=== PATIENT | male | born 1975 | race Caucasian/White ===

== ENCOUNTER → 2019-04-25 | Outpatient (CLI) | payer BC | LOC: COL.VAS 12:30 | DX: I08.0 Rheumatic disorders of both mitral and aortic valves (principal) ==

== ENCOUNTER → 2019-05-23 | Outpatient (CLI) | payer BC ==
[~2019-05-23] MED LIST: ADDERALL XR30 MG PO; AXIRON30 MG/1.5; COZAAR 25MG25 MG/TAB PO; OMEGA-31 SGL PO; RITALIN10 MG PO
== END ==
LOC: COL.RAD 10:53
DX: I77.810 Thoracic aortic ectasia (principal); I51.7 Cardiomegaly
CPT/HCPCS: Q9967

== ENCOUNTER 2019-05-24 07:36 | Day surgery (SDC) | payer BC ==
[~2019-05-24] VITALS: Ht 22.9 cm; Wt 95.4 kg
[2019-05-24] VITALS (11 sets, daily range): BP systolic 117–131; BP diastolic 66–79; PULSE 77–109; TEMP 98
[2019-05-24 08:06] LABS: HEMATOCRIT 51.9 % (42.0-52.0); HEMOGLOBIN 17.6 g/dl (13.5-18.0); MEAN CELL VOLUME 87 fl (80.0-100.0); MEAN CORPUSCULAR HEMOGLOBIN 30 pg (27.0-31.0); MEAN CORPUSCULAR HGB CONC 34 g/dl (33.0-37.0); PLATELET COUNT 231 K/mm3 (130-400); RED BLOOD COUNT 5.95 M/mm3 (4.20-5.60); REDCELL DISTRIBUTION WIDTH-CV 13.1 % (11.5-14.5)
[2019-05-24] MEDS ORDERED: ADDERALL XR30 MG PO (08:11)
[2019-05-24] MEDS ORDERED: OMEGA-31 SGL PO (08:12)
[2019-05-24] MEDS ORDERED: RITALIN10 MG PO (08:12)
[2019-05-24] MEDS ORDERED: AXIRON30 MG/1.5 (08:14)
[2019-05-24 08:18] LABS: CALCIUM 9.5 mg/dL (8.4-10.2); CREATININE, serum 1.21 (0.66-1.25); POTASSIUM 4.5 mmol/L (3.4-5.0)
[2019-05-24 08:21] LABS: INR 0.9 (0.8-3.0)
--- NOTE | 2019-05-24 10:02 | NUR ---
SEE [facility] FOR MEDICATION ADMINISTRATION TIMES AND INTRA/POST SEDATION ASSESSMENT/RASS SCORES
[2019-05-24] MEDS ORDERED: COZAAR 25MG25 MG/TAB PO (10:54)
--- NOTE | 2019-05-24 11:01 | NUR ---
GAG REFLUX INTACT. REPORT TAKEN FROM VIVIAN DEAL IN [facility].
--- NOTE | 2019-05-24 14:00 | NUR ---
5ml of air was released at 1320. Pt did have bleeding, 5ml of air was put back into the TR band and pt was instructed wait an additional 30 minutes. Pt was aware. Discharge instructions were reviewed with pt/spouse. Pt/spouse voice understanding. Pt tolerated intake with no N/V. Pt up and ambulating in and around the unit at this time with no complications. Pt voided with no complications. 5ml of air was released again after 30 minutes, no bleeding, remaining air, 6ml, was released from TR Band. 2x2 gauze and coban was applied to the pts right wrist. IV was removed with catheter tip intact, no phlebitis or infiltration. Pt was discharged via w/c to the care of spouse in private vehicle with discharge instructions in hand.
== END 2019-05-24 14:15 | disposition home or self-care (01) ==
LOC: COL.CAR 07:36
PROVIDERS: Internal Medicine Cardiovascular Disease
DX: I08.3 Combined rheumatic disorders of mitral, aortic and tricuspid valves (principal); F90.9 Attention-deficit hyperactivity disorder, unspecified type; I25.10 Atherosclerotic heart disease of native coronary artery without angina pectoris; E78.2 Mixed hyperlipidemia; R42 Dizziness and giddiness; Z88.0 Allergy status to penicillin; Z82.49 Family history of ischemic heart disease and other diseases of the circulatory system
CPT/HCPCS: J1644; J2250; J2704; J3010

== ENCOUNTER 2019-09-23 10:56 | Day surgery (SDC) | payer BC ==
[~2019-09-23] VITALS: Ht 175.3 cm; Wt 91.8 kg
[2019-09-23 11:28] VITALS: BP 148/73; PULSE 16; TEMP 98.1
[2019-09-23] MEDS ORDERED: MULTI VITAMINS1 TAB PO (11:34)
--- NOTE | 2019-09-23 11:35 | NUR ---
TO RM AT 1105- CALL LIGHT IN REACH AT BEDSIDE
[2019-09-23 14:01] VITALS: BP 116/67; PULSE 90; TEMP 97.9
--- NOTE | 2019-09-23 14:01 | NUR ---
TO RM 3 PER CART FROM [facility] ALERT ORIENTED X3, TALKING TO STAFF AND . DRESSING CLEAN DRY INTACT. RECEIVED MUFFIN AND OXiang.
[2019-09-23 14:15] VITALS: BP 121/69; PULSE 92
--- NOTE | 2019-09-23 14:15 | NUR ---
ATE 100% AND TOLERATED WELL
[2019-09-23] MEDS ORDERED: MOTRIN 600600 MG/TAB PO (14:20)
[2019-09-23] MEDS ORDERED: NORCO 325 MG-51 TAB PO (14:21)
[2019-09-23] MEDS ORDERED: COLACE 100100 MG/CAP PO (14:21)
[2019-09-23 14:30] VITALS: BP 159/67; PULSE 92
--- NOTE | 2019-09-23 14:30 | NUR ---
AMBULATED TO BATHROOM. VOIDED AND AMBULATED BACK TO . RECEIVED 2ND MUFFIN
--- NOTE | 2019-09-23 14:50 | NUR ---
RECEIVED DISCHARGE INSTRUCTIONS AND VERBALIZED UNDERSTANDING WITH . DISCONTINUED IV AND INT- CATHETER INTACT
--- NOTE | 2019-09-23 15:00 | NUR ---
DISCHARGED PER WC BY NURSING STAFF TO PRIVATE CAR IN CARE OF -JOSE E.
== END 2019-09-23 15:12 | disposition home or self-care (01) ==
LOC: SDCO 10:56
DX: K42.9 Umbilical hernia without obstruction or gangrene (principal); M19.90 Unspecified osteoarthritis, unspecified site; F90.9 Attention-deficit hyperactivity disorder, unspecified type; Z82.49 Family history of ischemic heart disease and other diseases of the circulatory system; Z88.0 Allergy status to penicillin
CPT/HCPCS: C1781; J0690; J1100; J1885; J2250; J2405; J2704; J7120

== ENCOUNTER → 2021-01-28 | Outpatient (CLI) | payer BC ==
[~2021-01-28] MED LIST changes: +ASPIRIN 81M81 MG/TA2 PO; -AXIRON30 MG/1.5; +AXIRON30 MG/1.5 TP; +COLACE 100100 MG/CAP PO; +COUMADIN 6MG6 MG/TAB PO; +COZAAR 50MG50 MG/TAB PO; +DUO-KAPS1 CAP PO; +EPA FISH OIL1 SGL PO; +LASIX 20MG TABL20 MG PO; +LIPITOR 80MG80 MG PO; +MOTRIN 600600 MG/TAB PO; +NORCO 325 MG-51 TAB PO; -OMEGA-31 SGL PO; +PLAVIX 75MG TAB75 MG PO; +TOPROL XL 50MG50 MG PO
== END ==
LOC: COL.LAB 10:11
DX: Z20.822 Contact with and (suspected) exposure to COVID-19 (principal)
CPT/HCPCS: J2704

== ENCOUNTER 2021-01-31 09:14 | Outpatient (CLI) | payer BC ==
[~2021-01-31] VITALS: Ht 175.3 cm; Wt 120.0 kg
[2021-01-31] VITALS (48 sets, daily range): BP systolic 111–150; BP diastolic 63–100; PULSE 105–180; TEMP 98.9; O2SAT 89–99
--- NOTE | 2021-01-31 09:10 | NUR ---
Pt is ready for departure. TR band was deflated with no problem, site dressed with bandaid, folded 2x2 and coban, cms intact distal. rt groin sit remains soft with mild tenderness. I reviewed dc/rx and fu instructions with pt and his . They verbalized understanding. iv was dc'd with cath intact, dressing applied. Pt escorted to exit via wheelchair.
[~2021-01-31 09:14] MED LIST changes: -ASPIRIN 81M81 MG/TA2 PO; -COUMADIN 6MG6 MG/TAB PO; -COZAAR 50MG50 MG/TAB PO; -LASIX 20MG TABL20 MG PO; -LIPITOR 80MG80 MG PO; -PLAVIX 75MG TAB75 MG PO; -TOPROL XL 50MG50 MG PO
[2021-01-31 09:49] LABS: HEMATOCRIT 48.2 % (42.0-52.0); HEMOGLOBIN 16.3 g/dl (13.5-18.0); MEAN CELL VOLUME 85 fl (80.0-100.0); MEAN CORPUSCULAR HEMOGLOBIN 29 pg (27.0-31.0); MEAN CORPUSCULAR HGB CONC 34 g/dl (33.0-37.0); MEAN PLATELET VOLUME 10.4 fl (7.4-10.4); PLATELET COUNT 287 K/mm3 (130-400); RED BLOOD COUNT 5.68 M/mm3 (4.20-5.60); REDCELL DISTRIBUTION WIDTH-CV 13.2 % (11.5-14.5)
[2021-01-31 09:58] LABS: CALCIUM 8.4 mg/dL (8.4-10.2); CREATININE, serum 1.41 (0.66-1.25); POTASSIUM 4.5 mmol/L (3.4-5.0)
[2021-01-31 10:04] LABS: INR 1.2 (0.8-3.0); PROTHROMBIN TIME 13.6 SECONDS (9.7-12.8)
--- NOTE | 2021-01-31 14:39 | NUR ---
Pt to procedure.
--- NOTE | 2021-01-31 14:45 | NUR ---
SEE [facility] FOR MEDICATION ADMINISTRATION AND INTRA/POST PROCEDURE ASSESSMENTS.
--- NOTE | 2021-01-31 16:08 | NUR ---
Pt returned from procedure,report from Wily Vega.
--- NOTE | 2021-01-31 17:49 | NUR ---
Report to Wily Rdz.
--- NOTE | 2021-01-31 18:00 | NUR ---
pt care assumed at this time. Report from Kylee PARK. Pt has TR band on rt wrist, no bleeding or hematoma, cms intact distal. Rt groin venous ppuncture site unchanged. upper thigh is soft without evidence of any further bleeding. cms intact distal. mild tenderness at site per pt. At this time plan is to start deflating TR band, and also bedrest ends at this time, so pt sat on edge of bed and ambulated in room with steady gait. No changes in groin site with this activity. Pt settled back on cot while TR band is deflated. at bs. call light in reach.
[2021-01-31] MEDS ORDERED: TOPROL XL 50MG50 MG PO (18:09)
[2021-01-31] MEDS ORDERED: LIPITOR 80MG80 MG PO (18:10)
[2021-01-31] MEDS ORDERED: COZAAR 50MG50 MG/TAB PO (18:10)
[2021-01-31] MEDS ORDERED: LASIX 20MG TABL20 MG PO (18:10)
== END 2021-01-31 20:07 | disposition home or self-care (01) ==
LOC: COL.RAD 09:14
PROVIDERS: Internal Medicine Cardiovascular Disease
DX: Z01.812 Encounter for preprocedural laboratory examination (principal); I35.1 Nonrheumatic aortic (valve) insufficiency
CPT/HCPCS: C1769; C1894; J1644; J2250; J3010; J7120; Q9967

== ENCOUNTER 2021-04-22 15:36 | Outpatient (RCR) | payer BC ==
[~2021-04-22 15:36] MED LIST changes: +COZAAR 50MG50 MG/TAB PO; +LASIX 20MG TABL20 MG PO; +LIPITOR 80MG80 MG PO; +TOPROL XL 50MG50 MG PO
== END 2021-04-29 15:48 | disposition home or self-care (01) ==
LOC: COL.CR 15:36
DX: Z48.812 Encounter for surgical aftercare following surgery on the circulatory system (principal); Z95.2 Presence of prosthetic heart valve

== ENCOUNTER 2021-06-18 07:28 | Day surgery (SDC) | payer BC ==
[2021-06-18] VITALS (17 sets, daily range): BP systolic 110–143; BP diastolic 72–88; PULSE 85–124; TEMP 97.4–98.1
[~2021-06-18] VITALS: Ht 175.4 cm; Wt 85.9 kg
[2021-06-18 08:14] LABS: HEMATOCRIT 49.3 % (42.0-52.0); HEMOGLOBIN 16.5 g/dl (13.5-18.0); MEAN CELL VOLUME 88 fl (80.0-100.0); MEAN CORPUSCULAR HEMOGLOBIN 30 pg (27.0-31.0); MEAN CORPUSCULAR HGB CONC 34 g/dl (33.0-37.0); MEAN PLATELET VOLUME 9.7 fl (7.4-10.4); PLATELET COUNT 219 K/mm3 (130-400); REDCELL DISTRIBUTION WIDTH-CV 13.2 % (11.5-14.5)
[2021-06-18] MEDS ORDERED: ASPIRIN 81M81 MG/TA2 PO (08:14)
[2021-06-18] MEDS ORDERED: COUMADIN 6MG6 MG/TAB PO (08:15)
[2021-06-18 08:22] LABS: INR 1.6 (0.8-3.0); PROTHROMBIN TIME 17.3 SECONDS (9.7-12.8)
[2021-06-18 08:24] LABS: CALCIUM 8.6 mg/dL (8.4-10.2); CREATININE, serum 1.12 (0.66-1.25); PARTIAL THROMBOPLASTIN TIME 34.4 SECONDS (26.0-37.0); POTASSIUM 4.6 mmol/L (3.4-5.0)
[2021-06-18] MEDS ORDERED: LIPITOR 80MG80 MG PO (09:35)
[2021-06-18] MEDS ORDERED: COZAAR 50MG50 MG/TAB PO (09:35)
[2021-06-18] MEDS ORDERED: TOPROL XL 50MG50 MG PO (09:36)
--- NOTE | 2021-06-18 10:24 | NUR ---
SEE [facility] FOR ALL MEDICATION ADMINISTRATION TIMES, INTRA AND POST SEDATION ASSESSMENTS
--- NOTE | 2021-06-18 11:45 | NUR ---
returned to room per bed from lab aid, assisted off cart and ambulated into room and into bed, denies chest pain or needs at this time,female at bedside
--- NOTE | 2021-06-18 12:00 | NUR ---
provided water per his request and instructed on how to order something for lunch, verbalizes understanding
--- NOTE | 2021-06-18 12:30 | NUR ---
lunch is here and sitting up in bed to eat
--- NOTE | 2021-06-18 13:00 | NUR ---
full assessment completed, see interventions for further info, no active bleeding noted
--- NOTE | 2021-06-18 13:34 | NUR ---
appears to be dozing, 5ml air released from radial band, no bleeding noted
--- NOTE | 2021-06-18 14:40 | NUR ---
appears to be dozing, remaining air taken out of radial band and no bleeding noted
--- NOTE | 2021-06-18 19:11 | NUR ---
bedside shift report given to VIVIAN Carmona
[2021-06-19 00:48] VITALS: BP 136/77; PULSE 88; TEMP 97.9
[2021-06-19 01:08] VITALS: BP 136/77; PULSE 88; TEMP 97.9
[2021-06-19 04:18] VITALS: BP 130/77; PULSE 90; TEMP 97.7
[2021-06-19 04:25] VITALS: BP 130/77; PULSE 90; TEMP 97.7
[2021-06-19 07:37] VITALS: BP 136/79; PULSE 92; TEMP 98.5
[2021-06-19 08:15] LABS: BASO % 0.2 % (0.0-2.0); EOS # 0.3 (0.0-0.7); EOS % 3.5 % (0-4.0); GRAN # 5.8 (1.4-6.5); GRAN % 70.1 % (42.2-75.2); HEMATOCRIT 49.1 % (42.0-52.0); HEMOGLOBIN 16.1 g/dl (13.5-18.0); LYMPH # 1.5 (1.2-3.4); LYMPH % 18.1 % (20.0-51.0); MEAN CELL VOLUME 89 fl (80.0-100.0); MEAN CORPUSCULAR HEMOGLOBIN 29 pg (27.0-31.0); MEAN CORPUSCULAR HGB CONC 33 g/dl (33.0-37.0); MEAN PLATELET VOLUME 10.4 fl (7.4-10.4); MONO # 0.6 (0.1-0.6); MONO % 7.7 % (1.7-9.3); PLATELET COUNT 214 K/mm3 (130-400); RED BLOOD COUNT 5.52 M/mm3 (4.20-5.60); REDCELL DISTRIBUTION WIDTH-CV 13.2 % (11.5-14.5)
--- NOTE | 2021-06-19 08:17 | NUR ---
Scheduled medications given. Shift assessment preformed. Patient denies any chest pain, SOA, discomfort, or further needs at this time. VSS. Call light in reach.
[2021-06-19 08:21] LABS: CALCIUM 8.5 mg/dL (8.4-10.2); CREATININE, serum 1.1 (0.66-1.25); POTASSIUM 4.3 mmol/L (3.4-5.0)
--- NOTE | 2021-06-19 09:22 | NUR ---
Initial visit; Patient thanked [employer] Grader for looking in on him and offering God's blessings.
--- NOTE | 2021-06-19 09:38 | NUR ---
SW met with the patient to discuss discharge plan. The patient lives in [place] with his , Danielle (ph#[phone]), and their two children. He reports independence with ADLs and does not have any DME. The patient's PCP is Dr. Artis Edouard and he receives his medications from [facility] in [facility]. He reports no difficulties obtaining his meds. The patient does not have a DPOA-HC in EMR, but he states that he does have one completed and that it designates his . The patient plans to return home with his family upon discharge. No additional needs at this time. *Discharge plan: home with family*
[2021-06-19] MEDS ORDERED: TOPROL XL 50MG50 MG PO (11:24)
[2021-06-19] MEDS ORDERED: PLAVIX 75MG TAB75 MG PO (11:24)
[2021-06-19 11:36] VITALS: BP 139/87; PULSE 88; TEMP 98.5
--- NOTE | 2021-06-19 13:10 | NUR ---
Patient deemed fit for discharge. IV DC'd, catheter intact, no signs of phlebitis. Discharge instructions/educations given. Patient denies any question or concerns at this time. VSS. Denies any pain or discomfort. Patient ambulated from building escorted by [facility] Staff. Family transporting home.
== END 2021-06-19 13:13 | disposition home or self-care (01) ==
LOC: COL.CAR 07:28 → MEDICAL 11:45 → COL.CAR 06-19 13:13
PROVIDERS: Internal Medicine Cardiovascular Disease
DX: I25.10 Atherosclerotic heart disease of native coronary artery without angina pectoris (principal); I48.91 Unspecified atrial fibrillation; E78.5 Hyperlipidemia, unspecified; Z95.1 Presence of aortocoronary bypass graft; Z20.822 Contact with and (suspected) exposure to COVID-19; Z95.2 Presence of prosthetic heart valve
CPT/HCPCS: OP; C1725; C1769; C1874; C1887; C9600; J0583; J1644; J2250; J3010